=== PATIENT | female | born 1965 | race Caucasian/White ===

== ENCOUNTER 2017-09-30 21:27 | Inpatient (IN) | payer SELFPAY ==
[~2017-09-30] VITALS: Ht 152.4 cm; Wt 68.0 kg
--- NOTE | 2017-09-30 21:40 | NUR ---
PT BIB SON FROM HOME, PT C/O LOWER ABD PAIN X 2 DAYS, NAD NOTED, VSS, RESP EVEN AND UNLABORED, RESP EVEN AND UNLABORED. PT PUT ON HOSPITAL GOWN, AND MONITOR, WAITING FOR MD VENTURA.
[2017-09-30] MEDS ORDERED: MORPHINE SULFATE INJ 2 MG/ML DISP.SYRIN ONE (21:52)
[2017-09-30] MEDS ORDERED: ONDANSETRON HCL/PF 4 MG/2 ML VIAL ONE (21:52)
[2017-09-30 21:54] LABS: BASOPHILS % (AUTO) 0.1 % (0.0-2.0); HEMATOCRIT 40 % (33-45); HEMOGLOBIN 13.6 g/dL (11.5-14.8); LYMPHOCYTES # (AUTO) 1.2 /CMM (0.8-4.8); LYMPHOCYTES % (AUTO) 10.1 % (20.0-44.0); MEAN CORPUSCULAR HEMOGLOBIN 30 PG (26.0-33.0); MEAN CORPUSCULAR HGB CONC 34 g/dl (31.0-36.0); MEAN CORPUSCULAR VOLUME 88 fL (82-100); MONOCYTES # (AUTO) 0.4 /CMM (0.1-1.30); MONOCYTES % (AUTO) 3.7 % (2.0-12.0); NEUTROPHILS % (AUTO) 86.1 % (43.0-81.0); PLATELET COUNT (AUTO) 251 /CMM (150-450); RDW COEFFICIENT OF VARIATION 13.6 (11.5-15.0); RED BLOOD CELL COUNT(AUTO) 4.58 MIL/uL (4.0-5.2); WHITE BLOOD COUNT (AUTO) 11.6 K/uL (4.3-11.0)
[2017-09-30] MEDS ORDERED: MORPHINE SULFATE INJ 2 MG/ML DISP.SYRIN IV ONE (22:00)
[2017-09-30] MEDS ORDERED: IV NS 0.9% 1,000 ML BAG IV ONE (22:00)
[2017-09-30] MEDS ORDERED: ONDANSETRON HCL/PF 4 MG/2 ML VIAL IVP ONE (22:00)
[2017-09-30 22:26] LABS: ALBUMIN 3.6 g/dL (3.4-5.0); BILIRUBIN,DIRECT 0.2 mg/dL (0.0-0.2); BILIRUBIN,TOTAL 0.8 mg/dL (0.2-1.0); CALCIUM, SERUM 9.2 mg/dL (8.5-10.1); CREATININE 0.8 mg/dL (0.6-1.3); POTASSIUM 3.9 mmol/L (3.5-5.1); TOTAL PROTEIN, SERUM 7.7 g/dL (6.4-8.2)
--- NOTE | 2017-09-30 22:54 | NUR ---
PT TO [facility]
[2017-09-30 23:03] LABS: APPEARANCE,URINE CLEAR (CLEAR); BILIRUBIN,URINE NEGATIVE (NEGATIVE); BLOOD, URINE TRACE Ery/uL (NEGATIVE); COLOR,URINE YELLOW (YELLOW); KETONES,URINE 3+ (NEGATIVE); LEUKOCYTE ESTERASE ,URINE 1+ (NEGATIVE); NITRITE, URINE NEGATIVE (NEGATIVE); PROTEIN,URINE NEGATIVE (NEGATIVE); UGLUCOSE NEGATIVE (NEGATIVE); UROBILINOGEN,URINE 0.2 EU/dL (0.2)
--- NOTE | 2017-09-30 23:07 | NUR ---
PT BACK FROM [facility]
[2017-09-30 23:17] LABS: BACTERIA,URINE None seen /HPF (None Seen); RBC,URINE 0-2 /HPF (0-2); SQUAMOUS EPITHELIAL CELL,UR Few /HPF (None Seen)
--- NOTE | 2017-09-30 23:44 | NUR ---
REPORT RECEIVED FROM MEGHAN FOR YELENA.
--- NOTE | 2017-09-30 23:45 | NUR ---
REPORT GIVEN TO TANNER, FOR CONTINUATION OF CARE
[2017-10-01] MEDS ORDERED: CIPROFLOXACIN IV RTU 400 MG in PREMIX 1 EA IV SCH (00:30)
[2017-10-01] MEDS ORDERED: FLAGYL/NS RTU 500 MG/100 ML PIGGYBACK IV ONE (00:30)
[2017-10-01] MEDS ORDERED: CIPROFLOXACIN IV RTU 200 ML IV ONE (00:37)
[2017-10-01] MEDS ORDERED: METRONIDAZOLE 500MG/ NS 100ML 100 ML IV ONE (00:37)
--- NOTE | 2017-10-01 01:23 | NUR ---
REPORT GIVEN TO ALICIA FOR YELENA.
[2017-10-01] MEDS ORDERED: MORPHINE SULFATE INJ 4 MG/ML DISP.SYRIN ONE (01:25)
[2017-10-01] MEDS ORDERED: MORPHINE SULFATE INJ 2 MG/ML DISP.SYRIN IV ONE (01:30)
[2017-10-01] MEDS ORDERED: ONDANSETRON HCL/PF 4 MG/2 ML VIAL IVP PRN (01:30)
[2017-10-01] MEDS ORDERED: ACETAMINOPHEN 650 MG/SUPP.RECT RC PRN (01:30)
[2017-10-01] MEDS ORDERED: LEVOFLOXACIN 500 MG /D5W 100ML 500 MG in PREMIX 1 EA IV SCH (01:30)
[2017-10-01] MEDS ORDERED: METRONIDAZOLE 500MG/ NS 100ML 500 MG in PREMIX 1 EA IV SCH (01:30)
--- NOTE | 2017-10-01 01:39 | NUR ---
PT TRANSPORTED VIA STRETCHER TO M/S 321-2 WITH EMT. MAHAMEDS.
[2017-10-01] MEDS ORDERED: LEVOFLOXACIN 500 MG /D5W 100ML 100 ML IV ONE (02:34)
[2017-10-01] MEDS: IV D5/0.45 NACL 1,000 ML IV PRN (02:59)
[2017-10-01] MEDS ORDERED: MORPHINE SULFATE INJ 4 MG/ML DISP.SYRIN IV PRN (08:30)
[2017-10-01] MEDS ORDERED: FAMOTIDINE/PF INJ 20 MG/2 ML VIAL IV ONE (09:00)
--- NOTE | 2017-10-01 09:00 | NUR ---
RN NOTES: RECEIVED REPORT FROM REGISTRY NURSE. PATIENT RESTING IN BED. NONLABORED BREATHING NOTED ON ROOM AIR. NO SIGNS OF DISTRESS NOTED. PATIENT'S IV SITE PATENT AND INTACT. PATIENT AFEBRILE. PATIENT AO 3 VIETNAMESE SPEAKING. BED IN LOWEST LOCKED POSITION. CALL LIGHT WITHIN REACH. WILL CONTINUE TO MONITOR
[2017-10-01] MEDS: METRONIDAZOLE 500MG/ NS 100ML 500 MG in PREMIX 1 EA IV SCH ×2 (10:54→18:56)
--- NOTE | 2017-10-01 19:20 | NUR ---
RN NOTES: PATIENT RESTING IN BED. NONLABORED BREATHING ON ROOM AIR. NO SIGNS OF DISTRESS NOTED. PATIENT BEGAN SOFT DIET DURING AFTERNOON PER DR TOM ORDERS. PATIENT TOLERATING DIET WELL. NO NAUSEA OR VOMITING NOTED. ABLE TO COMMUNICATE WITH PATIENT VIA SON, DAIRA. ACCORDING TO PATIENT, THE FOOD, IS NOT AGGRAVATING THE PAIN. PATIENT REFUSED IV FLUIDS WHEN BEGAN DIET. 630 ML INFUSED PER ORDERED FLUIDS. BENEFITS AND RISKS EXPLAINED DURING SHIFT, PATIENT ENCOURAGED TO TURN AND REPOSITION EVERY 2 HOURS. KEPT CLEAN AND DRY. ENDORSED TO NEXT SHIFT.
[2017-10-01 20:00] VITALS: BP 113/66
[2017-10-02] MEDS ORDERED: LEVOFLOXACIN 500 MG /D5W 100ML 500 MG in PREMIX 1 EA IV SCH (01:00)
[2017-10-02] MEDS: METRONIDAZOLE 500MG/ NS 100ML 500 MG in PREMIX 1 EA IV SCH ×2 (02:35→10:24)
--- NOTE | 2017-10-02 04:38 | NUR ---
RN NOTES No significant change in condition. patient slept comfortably during shift. No c/o pain or discomfort. Assisted to the bathroom.All needs attended. Due meds given as ordered. Will continue to monitor. No episode of nausea or vomiting during shift.
[2017-10-02] MEDS: IV D5/0.45 NACL 1,000 ML IV PRN (05:14)
--- NOTE | 2017-10-02 08:16 | NUR ---
MS RN OPENING NOTES USING SON REBECCA PBX INSTALLER ON PHONE. PT A&0X3 AND TOLERATING ROOM AIR. PT REPORTING NO PAIN AT THIS TIME. PT WITH IVC AT RIGHT AC INTACT AND S/L. BED IN LOWEST LOCKED POSITION WITH HANDRAILSX2 AND CALL BLANK WITHIN REACH. PT BRIEFED ON TODAY'S POC, PT WITHOUT CONCERN OR COMPLAINT AT THIS TIME.
[2017-10-02] MEDS ORDERED: LEVO500T15 PO (11:15)
[2017-10-02] MEDS ORDERED: METR500T PO (11:15)
--- NOTE | 2017-10-02 12:45 | NUR ---
RN NOTES. D/C PROCESS STARTED. PT BRIEFED ON [facility] D/C PACKET WITH INSTRUCTIONAL MEDIA SERVICES TECHNICIAN. PT WITHOUT CONCERN OF COMPLAINT.
--- NOTE | 2017-10-02 19:11 | NUR ---
RN CLOSING NOTES. PT A&0X3 WITH DAUGHTER IN LAW AT BEDSIDE. IVC REMOVED, NAD AT SITE. PT WITHOUT CONCERN OR COMPLAINT AND NO S/S OF DISSTRESS OR DISCOMFORT. PT AND FAMILY BRIEFED ON [facility] D/C PACKET, PRESCRIPTIONS AND POC, FAMILY VERBALIZING UNDERSTANDING AND INTENT TO FOLLOW. PT WITH ALL BELONGINGS AND DOCUMENT SIGNED. PT WITHOUT CONCERN AND COMPLAINT, LEFT WITH FAMILY.
== END 2017-10-02 15:34 | disposition home or self-care (01) | DRG 392 ==
LOC: ER 21:28 → MED 10-01 01:23
PROVIDERS: ADMIT Internal Medicine; ATTEND Internal Medicine
DX: K57.32 Diverticulitis of large intestine without perforation or abscess without bleeding (principal); Z87.891 Personal history of nicotine dependence
CPT/HCPCS: 36415; 76705-TC; 80048-TC; 80076-TC; 81000-TC; 83690-TC; 85025-TC; 87081-TC; 87086-TC; A4216; A4606; J0744; J1956; J2270; J2405; J3490; J7030; Z7610